=== PATIENT | male | born 1965 | race Caucasian/White ===

== ENCOUNTER 2023-11-20 14:12 | Emergency (ER) | payer OTHER ==
--- OUTSIDE RECORDS SUMMARY | 2023-11-20 14:16 | XMS REPORT | Continuity of Care Document ---
Author Name Unknown Address [address] [place] [address] [facility] thconnect Address 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 Operator Name Role Phone YECENIA NEVILLE Attending Clinician Unavailab le VALREEN_FARHANA Attending Clinician Unavailable AMEENA RIVERA Attending Clinician UnavailAUGUSTINA Shen Attending Clinician Unavailable PAWAN HAYES Attending Clinician Unavailable EMILY CLAYTON Attending Clinician Unavailab le AMBREEN_FARHANA Admitting Clinician Unavailable Payers Payer Name Policy Type Policy Number Effective Date Expirati on Date Source [facility] CHOICE/CHOICE PLUS [id number] 2023 00:00:00 Medications Ordered Medication Name Filled Medication Name Start Date Stop Date Current Medication? Ordering Clinician Indication Dosage Frequency Signature (SIG) Comments Components Source dexamethaso ne 6 mg tablet TAKE 1 TABLET BY MOUTH ONCE DAILY FOR 7 DAYS dexamethaso ne 6 mg tablet TAKE 1 TABLET BY MOUTH ONCE DAILY FOR 7 DAYS No dexamethas one 6 mg tablet TAKE 1 TABLET BY MOUTH ONCE DAILY FOR 7 DAYS [facility] lisinopril 20 mg tablet TAKE 1 TABLET BY MOUTH ONCE DAILY lisinopril 20 mg tablet TAKE 1 TABLET BY MOUTH ONCE DAILY No lisinopril 20 mg tablet TAKE 1 TABLET BY MOUTH ONCE DAILY [facility] azithromyci n 250 mg tablet TAKE 2 TABLETS BY MOUTH ON DAY 1 AND THEN TAKE 1 TABLET BY MOUTH ONCE A DAY ON DAY 2 THROUGH DAY 5 azithromyci n 250 mg tablet TAKE 2 TABLETS BY MOUTH ON DAY 1 AND THEN TAKE 1 TABLET BY MOUTH ONCE A DAY ON DAY 2 THROUGH DAY 5 No azithromyc in 250 mg tablet TAKE 2 TABLETS BY MOUTH ON DAY 1 AND THEN TAKE 1 TABLET BY MOUTH ONCE A DAY ON DAY 2 THROUGH DAY 5 [facility] Encounters Start Date/Time End Date/Time Encounter Type Admission Type Attending [facility] Facility Care Department Encounter ID Source 2023-11-24 13:45:00 2023-11-24 13:45:00 Outpatient [facility] [id number] [facility] 2023-10-26 08:53:00 2023-10-26 12:07:00 emergency [facility] [id number] 2023-10-26 08:53:00 2023-10-26 12:07:00 Emergency ER KELIN YECENIA [facility] [id number] [facility] 2020-09-16 01:34:00 2020-09-16 01:34:00 Outpatient ABDOULAYE [facility] [id number] [facility] 2020-09-16 00:00:00 2020-09-16 00:00:00 Damaris Gomez MD: Renata aPrekh, [place] [address] , [address] [facility] [id number] [facility] 2020-08-25 01:02:00 2020-08-25 01:02:00 Outpatient AMBREEN_NEGIN [facility] [id number] [facility] 2020-08-18 10:27:00 2020-08-18 10:27:00 Outpatient AMBREENNAHUM [facility] [id number] [facility] 2020-08-18 00:00:00 2020-08-18 00:00:00 Damaris Gomez MD: [address] [place] [address] , Ph. [facility] Jain [facility] [id number] [facility] 2020-08-13 02:42:00 2020-08-13 02:42:00 Outpatient AMBREENNAHUM [facility] [id number] [facility] 2012-04-12 07:29:00 2012-04-12 07:29:00 Outpatient AMEENA MUSA [facility] [id number] [facility] 2010-03-31 22:01:00 2010-04-01 01:19:00 Emergency ER AUGUSTINA GOULD [facility] [id number] [facility] 2010-02-23 15:08:00 2010-02-23 15:08:00 Outpatient PAWAN CESPEDES [facility] [id number] [facility] 2009-10-29 11:23:00 2009-10-29 14:25:00 Emergency ER EMILY CLAYTON [facility] [id number] [facility]
[2023-11-20 16:35] LABS: Absolute Basophils 0.1 K/uL (0-0.5); Absolute Eosinophils 0.2 K/uL (0-0.5); Absolute Lymphocytes (CBC) 2.1 K/uL (0.7-4.9); Absolute Monocytes 1.6 K/uL (0.1-1.3); Absolute Neutrophil 12.9 K/uL (1.8-8.0); Basophils % 0.6 % (0-1.3); Hematocrit 35.6 % (39.6-49.0); Hemoglobin 11.3 g/dL (13.6-17.9); Lymphocytes % 12.5 % (15.3-44.8); MCH 26.4 pg (27.0-35.0); MCHC 31.6 g/dL (32.0-36.0); MCV 83.4 fL (80-100); MPV 6.7 fL (7.6-11.3); Monocytes % 9.4 % (3.3-12.3); Neutrophils % 76.5 % (41.7-73.7); Platelets 761 thou/uL (152-406); RBC Red Blood Cell Count 4.26 M/uL (4.33-5.43); Red Cell Distribution Width 14.7 % (12.1-15.2)
[2023-11-20 16:38] LABS: PT Prothrombin Time 15.3 SECONDS (9.4-12.5); PTT, Activated Partial Thromb 33.7 SECONDS (24.3-36.9); Protime INR 1.4
--- NOTE | 2023-11-20 16:41 | RAD REPORT ---
EXAM DESCRIPTION: USExtremity Venous Uni Ltd11/20/2023 4:15 pm CLINICAL HISTORY: left leg pain COMPARISON: None FINDINGS: Acute thrombus left popliteal vein with diminished flow. The vein is not compressible Left common femoral, superficial femoral, greater saphenous, popliteal and posterior tibial veins ar e compressible and demonstrate augmentation. Doppler demonstrates good flow. Grayscale, color and spectral analysis performed on all vessels IMPRESSION: Acute left popliteal venous thrombosis
[2023-11-20 16:54] LABS: Albumin/Globulin Ratio 0.5 (1.1-1.8); Bilirubin Total 0.9 mg/dL (0.2-1.0); Globulin 5.7 g/dL (2.3-3.5); Protein, Total 8.7 g/dL (6.4-8.2)
--- NOTE | 2023-11-20 17:42 | RAD REPORT ---
EXAM DESCRIPTION: CT - Chest For Pe Angio - 11/20/2023 5:30 pm CLINICAL HISTORY: Chest pain COMPARISON: None. TECHNIQUE: Dynamically enhanced axial 3 mm thick images of the chest were obtained during administra tion of 150 mL Isovue 370 IV contrast. Coronal and sagittal reconstruction images were generated and reviewed. Exam utilizes a protocol for optimal evaluation of pulmonary arterial tree. Maximum intensity projections 3D imaging was utilized All CT scans are performed using dose optimization technique as appropriate and may include automated exposure control or mA/KV adjustment according to patient size. FINDINGS: There is poor opacification the pulmonary arteries. This is nondiagnostic to detect pulmon dave embolus. Aberrant right subclavian artery A thoracic aortic aneurysm is not noted. No thoracic aortic dissection A pleural effusion is not seen. A pericardial effusion is not seen. A lung consolidation is not present. Moderate hiatal hernia. The esophagus is distended with fluid IMPRESSION: No thoracic aortic dissection Nondiagnostic evaluation of the pulmonary arteries Moderate hiatal hernia. The esophagus is distended with fluid
[2023-11-20] MEDS ORDERED: NA CHLORIDE 0.9% 1,000 ML ONE ×2 (17:48→21:40)
--- NOTE | 2023-11-20 17:54 | RAD REPORT ---
EXAM DESCRIPTION: CT - Abdomen Pelvis W Contrast - 11/20/2023 5:30 pm CLINICAL HISTORY: Abdominal pain COMPARISON: none. TECHNIQUE: Computed axial tomography of the abdomen pelvis was obtained. 100 cc Isovue-300 was admin istered intravenously. Oral contrast was not requested which limits evaluation of bowel and appendix All CT scans are performed using dose optimization technique as appropriate and may include automated exposure control or mA/KV adjustment according to patient size. FINDINGS: The liver, spleen, pancreas, adrenal and kidneys appear unremarkable. 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 No obstruction. Diverticula stem from co shorty without evidence diverticulitis. Several areas of ill-defined fluid are present within abdomen and upper pelvis. No air bubbles within the fluid. Prostate gland is moderately enlarged. Small to moderate inguinal hernias contain fat Inflammatory changes surround skin and subcutaneous tissue at the surgical site midline abdomen. An a bscess is not seen. Mild anterior subluxation L5 on S1. Spondylolysis L5 IMPRESSION: Partial colon resection with right lower quadrant ileostomy. No obstruction. Inflammatory changes surround skin and subcutaneous tissue at the surgical site midline abdomen. An a bscess is not seen within the subcutaneous tissues. . This may indicate a cellulitis Ill-defined fluid within the abdomen and upper pelvis. This may be blood. A well-formed abscess is no t present. If the patient's symptoms do not improve then followup CT obtained to reassess the fluid c ollections.
--- NOTE | 2023-11-20 19:14 | ER ---
Nurse's Notes [facility] Name: Nesha García Age: 57 yrs Sex: Male : 1965 Arrival Date: 11/20/2023 Time: 14:12 Bed 19 Private MD: Diagnosis: Post operative fluid collection;Severe sepsis without septic shock;Cellulitis of abdominal wall;Acute left popliteal venous thrombosis Presentation: 11/19 15:31 Chief complaint: Patient states: Had ileostomy earlier this month, has been referred to cancer center here in town, c/o pain and redness to surgical site and pain to Fina partida. Coronavirus screen: Vaccine status: Patient reports receiving the 2nd dose of the covid vaccine. Ebola Screen: No symptoms or risks identified at this time. Initial Sepsis Screen: Does the patient meet any 2 criteria? No. Patient's initial sepsis screen is negative. Does the patient have a suspected source of infection? No. Patient's initial sepsis screen is negative. Risk Assessment: Do you want to hurt yourself or someone else? Patient reports no desire to harm self or others. Onset of symptoms was November 20, 2023. 15:31 Method Of Arrival: Ambulatory 15:31 Acuity: GIORGI 2 Historical: - Allergies: 15:35 PENICILLINS; - Immunization history:: Adult Immunizations unknown. - Infectious Disease History:: Denies. - Social history:: Smoking status: unknown. Screenin:35 [facility] ED Fall Risk Assessment (Adult) History of falling in the last 3 months, me1 including since admission No falls in past 3 months (0 pts) Confusion or Disorientation No (0 pts) Intoxicated or Sedated No (0 pts) Impaired Gait No (0 pts) Mobility Assist Device Used No (0 pt) Altered Elimination No (0 pt) Score/Fall Risk Level 0 - 2 = Low Risk Maintained a safe environment, Provided non-skid footwear, Hourly rounding (assess needs \T\ fall precautionary measures) done. Abuse screen: Denies threats or abuse. Nutritional screening: No deficits noted. Tuberculosis screening: No symptoms or risk factors identified. Assessment: 15:35 General: Appears uncomfortable, well groomed, well developed, well nourished, Behavior me1 is calm, cooperative, appropriate for age, Reports Had ileostomy earlier this month, has been referred to cancer center here in town, c/o pain and redness to surgical site and pain to L calf. Pain: Complains of pain in left calf Pain does not radiate. Pain currently is 3 out of 10 on a pain scale. Quality of pain is described as tender, Pain began gradually, 2-3 days ago. Is continuous. Neuro: Level of Consciousness is awake, alert, obeys commands, Oriented to person, place, time, situation, Appropriate for age. Cardiovascular: Capillary refill < 3 seconds Patient's skin is warm and dry. Respiratory: Airway is patent Trachea midline Respiratory effort is even, unlabored, Respiratory pattern is regular, symmetrical. GI: Ileostomy site is reddened. Ostomy appliance is intact. : No signs and/or symptoms were reported regarding the genitourinary system. EENT: No signs and/or symptoms were reported regarding the EENT system. Derm: Wound noted umbilical area and suprapubic area Wound is surgical incision. Musculoskeletal: Reports pain in left calf. Vital Signs: 15:31 BP 95 / 60; Pulse 118; Resp 20; Temp 99.4; Pulse Ox 96% on R/A; Weight 104.33 kg; ph Height 5 ft. 10 in. ; 16:30 BP 101 / 71; Pulse 102; Resp 19; Pulse Ox 94% on R/A; me1 17:00 BP 103 / 62; Pulse 105; Resp 20; Pulse Ox 97% on R/A; me1 18:00 BP 103 / 67; Pulse 103; Resp 21; Pulse Ox 97% on R/A; me1 19:00 BP 109 / 72; Pulse 103; Resp 24; Pulse Ox 97% on R/A; me1 20:00 BP 99 / 71; Pulse 104; Resp 19; Pulse Ox 95% on R/A; me1 21:00 BP 120 / 79; Pulse 97; Resp 20; Pulse Ox 97% on R/A; me1 15:31 Body Mass Index 33.00 (104.33 kg, 177.8 cm) ph ED Course: 14:15 Patient arrived in ED. mr 14:36 Julisa Moran PA-C is PHCP. sb4 14:36 Tarik Carrillo MD is Attending Physician. sb4 15:35 Triage completed. ph 15:35 Arm band placed on. ph 15:35 Patient has correct armband on for positive identification. Bed in low position. Call me1 light in reach. Side rails up X2. Provided Education on: POC. Verbalized understanding. . 15:35 No provider procedures requiring assistance completed. me1 15:41 Ashley Amaya, RN is Primary Nurse. me1 16:17 Extremity Venous Uni Ltd US In Process Unspecified. EDMS 16:25 Blood Culture Adult (2) Sent. ld1 16:25 Lactate w/ 2H reflex if indic. Sent. ld1 16:25 Inserted saline lock: 20 gauge in left antecubital area, using aseptic technique. Blood ld1 collected. 16:33 Client placed on continuous cardiac and pulse oximetry monitoring. NIBP monitoring me1 applied. engine monitor on. Pulse ox on. NIBP on. 17:32 CT Abd/Pelvis - IV Contrast Only In Process Unspecified. EDMS 17:32 CT Chest For PE Angio In Process Unspecified. EDMS 20:40 Initiated transfer with Sandra Dawn \T\ [facility]. km 21:00 pt was accepted sandra dawn, [address] Aguilar Fatoumata \\2100. Admin: [facility]\2100. number for nurse to nurse report [phone]. [facility] to transfer pt. 21:43 Patient transferred, IV remains in place. me1 Administered Medications: 17:48 Drug: NS 0.9% IV 1000 ml IV at 1 bolus Per protocol; 1000 mL bolus Route: IV; Rate: 1 me1 bolus; Site: left antecubital; 19:51 Follow up: Response: No adverse reaction; IV Status: Completed infusion; IV Intake: me1 1000ml 19:16 Drug: metroNIDAZOLE IVPB 500 mg 100 ml IVPB at 200 ml/hr once over 30 mins Volume: 100 me1 ml; Route: IVPB; Rate: 200 ml/hr; Infused Over: 30 mins; Site: left antecubital; 19:57 Follow up: Response: No adverse reaction; IV Status: Completed infusion; IV Intake: me1 100ml 19:55 Drug: Ciprofloxacin IVPB 400 mg 200 ml IVPB once over 60 mins Volume: 200 ml; Route: me1 IVPB; Infused Over: 60 mins; Site: left antecubital; 21:39 Follow up: Response: No adverse reaction; IV Status: Completed infusion; IV Intake: me1 200ml 21:41 Drug: NS 0.9% IV 1000 ml IV at 125 ml/hr continuous Route: IV; Rate: 125 ml/hr; Site: ct1 left antecubital; 22:05 Follow up: IV Status: Infusion continued upon transfer me1 Medication: 15:35 VIS not applicable for this client. me1 Intake: 19:51 IV: 1000ml; Total: 1000ml. me1 19:57 IV: 100ml; Total: 1100ml. me1 21:39 IV: 200ml; Total: 1300ml. me1 Outcome: 19:14 ER care complete, transfer ordered by . sb4 21:41 Transferred by ground EMS to [facility], Transfer form completed. Note: me1 Report called to BLANKA Vora. 21:41 Condition: stable 21:41 Instructed on the need for transfer, 22:16 Patient left the ED. me1 Signatures: Dispatcher [employer] EDRadha Mccabe, Reg Reg mr Selina Alex RN RN [facility] RN RN ld1 Julisa Moran, PA-C PA-C sb4 Ashley Amaya RN RN me1 [facility] Corrections: (The following items were deleted from the chart) 18:47 15:31 Chief complaint: Patient states: Had ileostomy earlier this month, has been me1 referred to cancer center here in town, c/o pain and redness to surgical site and pain to L helga, ph 19:59 16:30 BP 101 / 71; Pulse 102bpm; Pulse Ox 94% RA; Temp 19F; me1 me1
--- NOTE | 2023-11-20 19:14 | EDPHYS ---
Physician Documentation [facility] Name: Nesha García Age: 57 yrs Sex: Male : 1965 Arrival Date: 11/20/2023 Time: 14:12 Bed 19 Private MD: ED Physician Tarik Carrillo HPI: 11/19 17:03 This 57 yrs old Male presents to ER via Ambulatory with complaints of Post Surgical sb4 Pain, Leg Pain. 17:03 Patient presents with complains of left calf pain. He had a colectomy with ileostomy sb4 done at [facility] about 3 weeks ago and is concerned about a DVT. Additionally, states that he has been nauseated, been running a low-grade fever, and that his incision site looks red. She also reports a change in ostomy output. Historical: - Allergies: 15:35 PENICILLINS; ph - Immunization history:: Adult Immunizations unknown. - Infectious Disease History:: Denies. - Social history:: Smoking status: unknown. ROS: 17:03 Cardiovascular: Negative for chest pain, palpitations, and edema, sb4 17:03 Constitutional: Positive for fever, 17:03 Abdomen/GI: Positive for abdominal pain, 17:03 MS/extremity: Positive for left calf pain, 17:03 All other systems are negative, Exam: 17:03 Constitutional: This is a well developed, well nourished patient who is awake, alert, sb4 and in no acute distress. Head/Face: Normocephalic, atraumatic. Eyes: Extra-ocular motions intact. Periorbital areas with no swelling, redness, or edema. ENT: Mucous membranes moist. Respiratory: Lungs have equal breath sounds bilaterally, clear to auscultation and percussion. No rales, rhonchi or wheezes noted. No increased work of breathing, no retractions or nasal flaring. 17:03 Abdomen/GI: Inspection: scar(s), are noted in the midline, Bowel sounds: normal, Palpation: soft, periumbilical distension. incision site well approximated, no significant surrounding cellulitis, zahira intact, ostomy draining brown fluid, 17:03 Musculoskeletal/extremity: DVT Exam: no swelling, negative Homans' sign noted on exam, no appreciated bluish discoloration, no erythema, no increased warmth, pain, tenderness, of the left leg, Vital Signs: 15:31 BP 95 / 60; Pulse 118; Resp 20; Temp 99.4; Pulse Ox 96% on R/A; Weight 104.33 kg; ph Height 5 ft. 10 in. ; 16:30 BP 101 / 71; Pulse 102; Resp 19; Pulse Ox 94% on R/A; me1 17:00 BP 103 / 62; Pulse 105; Resp 20; Pulse Ox 97% on R/A; me1 18:00 BP 103 / 67; Pulse 103; Resp 21; Pulse Ox 97% on R/A; me1 19:00 BP 109 / 72; Pulse 103; Resp 24; Pulse Ox 97% on R/A; me1 20:00 BP 99 / 71; Pulse 104; Resp 19; Pulse Ox 95% on R/A; me1 21:00 BP 120 / 79; Pulse 97; Resp 20; Pulse Ox 97% on R/A; me1 15:31 Body Mass Index 33.00 (104.33 kg, 177.8 cm) ph MDM: 14:44 Patient medically screened. [facility] 19:12 Data reviewed: vital signs, nurses notes, lab test result(s), radiologic studies, I [facility] have discussed the patient's presentation/case with the attending Emergency Department Physician;. Historians other than the Patient: Spouse/Significant Other: . Counseling: I had a detailed discussion with the patient and/or guardian regarding the historical points, exam findings, and any diagnostic results supporting the discharge/admit diagnosis, lab results, radiology results, the need to transfer to another facility, for higher level of care, [facility] does not immediately have the required specialist. 21:02 ED course: will defer anticoagulation at this time to surgical team at [address] given possible surgical intervention. ED course: [facility] surgery team accepted without conference. 11/19 15:38 Order name: Blood Culture Adult (2) [facility] 11/19 15:38 Order name: CBC with Diff; Complete Time: 16:39 [facility] 11/19 15:38 Order name: CMP; Complete Time: 16:54 [facility] 11/19 15:38 Order name: Lactate w/ 2H reflex if indic.; Complete Time: 16:58 [facility] 11/19 15:38 Order name: Protime (+inr); Complete Time: 16:38 sb4 11/19 15:38 Order name: Ptt, Activated; Complete Time: 16:38 sb4 11/19 18:58 Order name: Ghost Lactate-NO COLLECT Timer; Complete Time: 18:59 EDMS 11/19 19:49 Order name: Lactate Sepsis 2 HR Follow-up; Complete Time: 19:51 EDMS 11/19 15:38 Order name: CT Abd/Pelvis - IV Contrast Only; Complete Time: 17:56 sb4 11/19 15:38 Order name: Extremity Venous Uni Ltd US; Complete Time: 16:42 sb4 11/19 17:15 Order name: CT Chest For PE Angio; Complete Time: 17:42 sb4 11/19 15:38 Order name: Cardiac monitoring; Complete Time: 16:33 sb4 11/19 15:38 Order name: IV Saline Lock - Large Bore; Complete Time: 16:25 sb4 11/19 15:38 Order name: Labs collected and sent; Complete Time: 16:25 sb4 11/19 15:38 Order name: O2 Per Protocol; Complete Time: 15:47 sb4 11/19 15:38 Order name: O2 Sat Monitoring; Complete Time: 15:47 sb4 11/19 15:38 Order name: Vital Signs; Complete Time: 15:47 sb4 11/19 20:56 Order name: NPO; Complete Time: 21:41 sb4 Administered Medications: 17:48 Drug: NS 0.9% IV 1000 ml IV at 1 bolus Per protocol; 1000 mL bolus Route: IV; Rate: 1 me1 bolus; Site: left antecubital; 19:51 Follow up: Response: No adverse reaction; IV Status: Completed infusion; IV Intake: me1 1000ml 19:16 Drug: metroNIDAZOLE IVPB 500 mg 100 ml IVPB at 200 ml/hr once over 30 mins Volume: 100 me1 ml; Route: IVPB; Rate: 200 ml/hr; Infused Over: 30 mins; Site: left antecubital; 19:57 Follow up: Response: No adverse reaction; IV Status: Completed infusion; IV Intake: me1 100ml 19:55 Drug: Ciprofloxacin IVPB 400 mg 200 ml IVPB once over 60 mins Volume: 200 ml; Route: me1 IVPB; Infused Over: 60 mins; Site: left antecubital; 21:39 Follow up: Response: No adverse reaction; IV Status: Completed infusion; IV Intake: me1 200ml 21:41 Drug: NS 0.9% IV 1000 ml IV at 125 ml/hr continuous Route: IV; Rate: 125 ml/hr; Site: me1 left antecubital; 22:05 Follow up: IV Status: Infusion continued upon transfer me1 Disposition Summary: 11/20/23 19:14 Transfer Ordered Notes: Transfer Location: [facility] sb4 Reason: Higher level of care sb4 Condition: Fair sb4 Problem: new sb4 Symptoms: are unchanged sb4 Accepting Physician: Dr. Cartagena(11/20/23 22:16) me1 Diagnosis - Post operative fluid collection sb4 - Severe sepsis without septic shock sb4 - Cellulitis of abdominal wall sb4 - Acute popliteal DVT, left sb4 - Acute popliteal thrombus, left sb4 - Acute left popliteal venous thrombosis sb4 Forms: - Medication Reconciliation Form sb4 - SBAR form sb4 Signatures: Dispatcher [employer] EDTarik Cornelius MD MD rn Hall, Patricia, RN RN Julisa Herzog PA-C PA-C sb4 Ashley Aamya RN RN me1 Corrections: (The following items were deleted from the chart) 19:15 19:14 Dr. Osiel [email or web address] sb4 19:15 19:15 Dr. Cartagena sb4 sb4 19:16 19:15 Dr. Osiel [email or web address] sb4 19:16 19:16 Dr. Cartagena sb4 sb4 20:44 17:03 Patient presents with complains of left calf pain. He had a colectomy with sb4 ileostomy done in the [facility] about 3 weeks ago and is concerned about a DVT. Additionally, states that he has been nauseated, been running a low-grade fever, and that his incision site looks red. She also reports a change in ostomy output. sb4 22:16 19:16 Dr. Osiel person me1
[2023-11-20] MEDS ORDERED: METRONIDAZOLE 500mg IVPB 500 MG/100 ML BAG IV ONE (19:15)
[2023-11-20] MEDS ORDERED: CIPROFLOXACIN 400mg IV 400 MG/200 ML BAG IV ONE (19:15)
[2023-11-21 05:08] VITALS: BP 120/79; TEMP 99.4; O2SAT 97
== END 2023-11-20 22:16 | disposition short-term general hospital (02) ==
LOC: ER 14:12
DX: L76.34 Postprocedural seroma of skin and subcutaneous tissue following other procedure (principal); R65.20 Severe sepsis without septic shock; L03.311 Cellulitis of abdominal wall; I82.432 Acute embolism and thrombosis of left popliteal vein; Z98.890 Other specified postprocedural states
CPT/HCPCS: 87040 ×2; 85025; 36415; 85610; 83605 ×2; 85730; 80053; 71275; 74177; 93971; Q9967; J0744; J7030 ×2

== ENCOUNTER 2024-01-28 18:49 | Emergency (ER) | payer OTHER ==
[2024-01-28 19:42] LABS: Absolute Eosinophils 0.1 K/uL (0-0.5); Absolute Lymphocytes (CBC) 4.2 K/uL (0.7-4.9); Absolute Monocytes 0.2 K/uL (0.1-1.3); Absolute Neutrophil 3.2 K/uL (1.8-8.0); Basophils % 0.2 % (0-1.3); Eosinophils % 0.9 % (0-4.4); Hematocrit 39.3 % (39.6-49.0); Hemoglobin 12.9 g/dL (13.6-17.9); Lymphocytes % 54.8 % (15.3-44.8); MCH 26.5 pg (27.0-35.0); MCHC 32.8 g/dL (32.0-36.0); MCV 80.8 fL (80-100); MPV 6.3 fL (7.6-11.3); Monocytes % 2.7 % (3.3-12.3); Neutrophils % 41.4 % (41.7-73.7); Nucleated Red Blood Cells % 0.2 % (0-0); Platelets 428 thou/uL (152-406); RBC Red Blood Cell Count 4.86 M/uL (4.33-5.43); Red Cell Distribution Width 17.6 % (12.1-15.2)
--- NOTE | 2024-01-28 19:44 | RAD REPORT ---
EXAM DESCRIPTION: US - UPPER EXTREMITY VENOUS UNILATE - 01/28/2024 7:38 pm CLINICAL HISTORY: RUE DVT eval Arm pain and swelling COMPARISON: <Comparisons> FINDINGS: Right upper extremity venous system was interrogated with Doppler technique. Thrombus is p resent in the right internal jugular vein, subclavian vein and axillary vein. The remainder the veins visualized are normal. IMPRESSION: Significant right upper extremity DVT seen as detailed.
[2024-01-28 19:58] LABS: Anion Gap 8.5 mEq/L (5.0-15.0); Potassium 3.5 mEq/L (3.5-5.1); Troponin High Sensitivity 8.1 pg/mL (<58.9)
[2024-01-28 20:00] LABS: PT Prothrombin Time 10.8 SECONDS (9.4-12.5); Protime INR 0.96
--- NOTE | 2024-01-28 20:11 | RAD REPORT ---
EXAM DESCRIPTION: US - Upper Ext Artery Uni Ned - 01/28/2024 8:03 pm CLINICAL HISTORY: RUE arterial pathology COMPARISON: <Comparisons> FINDINGS: Real-time sonographic interrogation of the right upper extremity arterial system is perfor med. No significant flow abnormality is detected. Velocities are within normal range. IMPRESSION: Negative study.
[2024-01-28 20:19] LABS: Differential Total Cells Count 100; Lymphocytes 63 % (15-42); Monocytes 1 % (0-10); Segmented Neutrophils 36 % (40-80)
[2024-01-28 20:20] LABS: Blood Morphology Comment NOT SEEN (NOT SEEN); Platelet Estimate ADEQ; Platelets Clumped FEW
[2024-01-28] MEDS ORDERED: HEPARIN/D5W 25,000 UNIT/500 ML BAG IV ONE (20:32)
--- NOTE | 2024-01-28 20:32 | ER ---
Nurse's Notes [facility] Name: Nesha García Age: 58 yrs Sex: Male : 1965 Arrival Date: 01/28/2024 Time: 18:49 Bed 2 Private MD: Diagnosis: Acute embolism and thrombosis of deep veins of right upper extremity Presentation: 01/27 19:03 Chief complaint: Patient states: he has had a port since October 2023. patient reports he ap3 had a chemo treatment from Monday 01/22-01/24 and started seeing some swelling to his right arm yesterday 01/26 and to the right side of his neck this morning on 01/28/24. patient currently rates his pain as a 7/10 on the pain scale. patient called his chemo dr with these symptoms and was instructed to come to the ED for further evaluation. Coronavirus screen: At this time, the client does not indicate any symptoms associated with coronavirus-19. Ebola Screen: No symptoms or risks identified at this time. Initial Sepsis Screen: Does the patient meet any 2 criteria? HR > 90 bpm. Does the patient have a suspected source of infection? No. Patient's initial sepsis screen is negative. Risk Assessment: Do you want to hurt yourself or someone else? Patient reports no desire to harm self or others. Onset of symptoms was January 27, 2024. 19:03 Method Of Arrival: Ambulatory ap3 19:03 Acuity: GIORGI 3 ap3 Triage Assessment: 19:06 General: Appears in no apparent distress. Behavior is calm, cooperative, appropriate ap3 for age. Pain: Complains of pain in right arm and neck Pain currently is 7 out of 10 on a pain scale. Neuro: Level of Consciousness is awake, alert, obeys commands, Oriented to person, place, time, situation, Appropriate for age. Cardiovascular: Patient's skin is warm and dry. Respiratory: Airway is patent Respiratory effort is even, unlabored, Respiratory pattern is regular, symmetrical. Historical: - Allergies: 19:06 PENICILLINS; ap3 - Immunization history:: Client reports receiving the 2nd dose of the Covid vaccine. - Infectious Disease History:: Denies. - Social history:: Smoking status: Patient reports use of chewing tobacco. Screenin:07 [facility] ED Fall Risk Assessment (Adult) History of falling in the last 3 months, ap3 including since admission No falls in past 3 months (0 pts) Confusion or Disorientation No (0 pts) Intoxicated or Sedated No (0 pts) Impaired Gait No (0 pts) Mobility Assist Device Used No (0 pt) Altered Elimination No (0 pt) Score/Fall Risk Level 0 - 2 = Low Risk Oriented to surroundings, Maintained a safe environment, Educated pt \T\ family on fall prevention, incl call for assistance when getting out of bed, Assessed \T\ reinforced patient's understanding of fall precautions, Hourly rounding (assess needs \T\ fall precautionary measures) done, Used ambulatory aids as needed (educated on \T\ assisted with), Used gait belt as appropriate. Abuse screen: Denies threats or abuse. Nutritional screening: No deficits noted. Tuberculosis screening: No symptoms or risk factors identified. Assessment: 19:32 General: Appears in no apparent distress. uncomfortable, Behavior is calm, cooperative, bm8 appropriate for age. Pain: Complains of pain in right arm and neck Pain currently is 8 out of 10 on a pain scale. Neuro: No deficits noted. Level of Consciousness is awake, alert, obeys commands, Oriented to person, place, time, situation, Appropriate for age. Cardiovascular: Reports swelling and mottled skin to right arm Heart tones S1 S2 present Capillary refill < 3 seconds Patient's skin is warm and dry. Rhythm is sinus rhythm. Respiratory: Airway is patent Respiratory effort is even, unlabored, Respiratory pattern is regular, symmetrical, Breath sounds are clear bilaterally. GI: No signs and/or symptoms were reported involving the gastrointestinal system. colostomy bag rRLQ. : No signs and/or symptoms were reported regarding the genitourinary system. EENT: No signs and/or symptoms were reported regarding the EENT system. Derm: No signs and/or symptoms reported regarding the dermatologic system. Musculoskeletal: Swelling present in right arm Reports pain in right arm. 21:15 Reassessment: Patient appears in no apparent distress at this time. Patient and/or bm8 family updated on plan of care and expected duration. Pain level reassessed. Patient is alert, oriented x 3, equal unlabored respirations, skin warm/dry/pink. pt reports increased pain in right arm. MD notified and new orders received. 21:54 Reassessment: md notified that the fentanyl had no effect on pt's pain level. new bm8 orders recieved. Pain: Complains of pain in right arm Pain currently is 9 out of 10 on a pain scale. 22:03 Reassessment: report to BLANKA Phelps at [facility]. bm8 Vital Signs: 19:03 BP 125 / 102; Pulse 92; Resp 17; Temp 97.5; Pulse Ox 98% on R/A; Weight 102.06 kg; ap3 Height 5 ft. 10 in. ; Pain 7/10; 21:15 BP 117 / 89; Pulse 73; Resp 15; Temp 97.5; Pulse Ox 99% ; Pain 9/10; bm8 21:54 BP 119 / 87; Pulse 67; Resp 12; Temp 97.5; Pulse Ox 99% ; Pain 9/10; bm8 19:03 Body Mass Index 32.28 (102.06 kg, 177.8 cm) ap3 19:03 Pain Scale: Adult ap3 21:15 Pain Scale: Adult bm8 21:54 Pain Scale: Adult bm8 [place] Coma Score: 19:32 Eye Response: spontaneous(4). Motor Response: obeys commands(6). Verbal Response: bm8 oriented(5). Total: 15. 21:15 Eye Response: spontaneous(4). Motor Response: obeys commands(6). Verbal Response: bm8 oriented(5). Total: 15. ED Course: 18:52 Patient arrived in ED. im 19:06 Triage completed. ap3 19:07 Arm band placed on left wrist. ap3 19:08 Omero Jacome MD is Attending Physician. ec2 19:32 Chris Farias, BLANKA is Primary Nurse. bm8 19:32 Patient has correct armband on for positive identification. Placed in gown. Bed in low bm8 position. Call light in reach. Side rails up X 1. Adult w/ patient. Client placed on continuous cardiac and pulse oximetry monitoring. NIBP monitoring applied. paralegal instructor on. Pulse ox on. NIBP on. Door closed. Noise minimized. Pillow given. Verbal reassurance given. Head of bed elevated. 19:32 No provider procedures requiring assistance completed. Initial lab(s) drawn, by bing marin sent to lab. EKG done, by ED staff, reviewed by Omero Jacome MD. Inserted saline lock: 20 gauge in left antecubital area, using aseptic technique. Blood collected. Flushed with 10 mL NS. Patient maintains SpO2 saturation greater than 95% on room air. 19:39 UPPER EXTREMITY VENOUS UNILATE In Process Unspecified. EDMS 20:05 Upper Ext Artery Uni Ned In Process Unspecified. EDMS 20:30 XRAY Chest (1 view) In Process Unspecified. EDMS 21:15 Provided Education on: need for admit. bm8 21:[address] [facility] for transfer talked to Rodger 2108 Vascular Surgeon accepted sp pt 2123 Dr. Carrillo Tsang accepted pt. 2133 Rodger Forman admin approval to [facility] bed # [id number] report # [phone] fax number [phone]. 22:05 called [facility] talked to Rubio. sp 22:41 Patient transferred, IV remains in place. bm8 Administered Medications: 20:32 Drug: Heparin (DVT/PE Drip) 18 units/kg/[place] - ([place] [address] units, D5W IV 500 ml) IV bm8 at calculated rate Per protocol; Max initial rate 1800 units/hr {Co-Signature: al5 (Yumiko Patel RN).} Route: IV; Rate: calculated rate; Site: left antecubital; 22:42 Follow up: Response: No adverse reaction; IV Status: Infusion continued upon transfer bm8 21:14 Drug: fentaNYL (PF) IVP 25 mcg IVP once Route: IVP; Site: left antecubital; bm8 22:42 Follow up: Response: No adverse reaction bm8 21:53 Drug: morphine IVP or IV 4 mg IVP once over 4 mins Route: IVP; Infused Over: 4 mins; bm8 Site: left antecubital; 22:41 Follow up: Response: No adverse reaction bm8 Medication: 19:32 VIS not applicable for this client. bm8 Outcome: 20:31 ER care complete, transfer ordered by ec2 22:41 Transferred by ground EMS [place] [facility]. bm8 X-rays sent w/ patient. 22:41 Condition: stable 22:41 Instructed on the need for transfer, Demonstrated understanding of instructions, follow-up care, 22:42 Patient left the ED. bm8 Signatures: Dispatcher [employer] Jaymie Ross Amanda, RN RN ap3 Kylah Delvalle Edwin, MD MD ec2 Chris Farias RN RN bm8 Yumiko Patel RN al5
--- NOTE | 2024-01-28 20:32 | EDPHYS ---
Physician Documentation [facility] Name: Nesha García Age: 58 yrs Sex: Male : 1965 Arrival Date: 01/28/2024 Time: 18:49 Bed 2 Private MD: ED Physician Omero Jacome HPI: 01/27 19:20 This 58 yrs old Male presents to ER via Ambulatory with complaints of Neck ec2 Swelling, Arm Swelling. 19:20 Patient arrives today for evaluation of right upper extremity swelling. Patient reports ec2 that yesterday he noticed forearm swelling. Patient reports some discomfort as well in the forearm. Denies any fevers or chills, is on chemotherapy for colon cancer, had a recent colon resection. Patient is already on Eliquis.. Historical: - Allergies: 19:06 PENICILLINS; ap3 - Immunization history:: Client reports receiving the 2nd dose of the Covid vaccine. - Infectious Disease History:: Denies. - Social history:: Smoking status: Patient reports use of chewing tobacco. ROS: 19:20 Constitutional: as per hpi ec2 Exam: 19:20 Constitutional: GEN: NAD Head: atraumatic Eyes: EOMI Ears: External ears are ec2 normal. CV: regular rate LUNGS: no respiratory distress ABD: non-distended SKIN: Swelling noted to the right upper extremity, intact capillary refill of the right upper extremity MSK: no evidence of trauma Vital Signs: 19:03 BP 125 / 102; Pulse 92; Resp 17; Temp 97.5; Pulse Ox 98% on R/A; Weight 102.06 kg; ap3 Height 5 ft. 10 in. ; Pain 7/10; 21:15 BP 117 / 89; Pulse 73; Resp 15; Temp 97.5; Pulse Ox 99% ; Pain 9/10; bm8 21:54 BP 119 / 87; Pulse 67; Resp 12; Temp 97.5; Pulse Ox 99% ; Pain 9/10; bm8 19:03 Body Mass Index 32.28 (102.06 kg, 177.8 cm) ap3 19:03 Pain Scale: Adult ap3 21:15 Pain Scale: Adult bm8 21:54 Pain Scale: Adult bm8 [place] Coma Score: 19:32 Eye Response: spontaneous(4). Motor Response: obeys commands(6). Verbal Response: bm8 oriented(5). Total: 15. 21:15 Eye Response: spontaneous(4). Motor Response: obeys commands(6). Verbal Response: bm8 oriented(5). Total: 15. MDM: 19:15 Patient medically screened. ec2 19:20 Data reviewed: vital signs. ED course: Patient arrives today for evaluation of right ec2 upper extremity swelling. Examination remarkable for well-appearing nontoxic vigorous otherwise in no acute distress with swelling noted to right upper extremity. Will obtain ultrasound to evaluate for DVT, will evaluate for arterial pathology as well as possible mass.. 19:21 ED course: EKG independently reviewed and interpreted by me, shows normal sinus rhythm, ec2 rate of 77, no acute ST segment elevations, intervals are nonconcerning.. 20:22 ED course: Metabolic profile is reassuring, CBC is reassuring. Troponin within normal ec2 ranges, fibrinogen within normal ranges, ultrasound shows significant right upper extremity DVT. Arterial ultrasound is negative. Will start the patient on heparin drip. . 20:30 ED course: Ultrasound shows fairly extensive DVT from the internal jugular to the ec2 subclavian and axillary vein, given the degree of clot burden, will transfer to vascular surgery capable facility. . 21:24 ED course: Discussed case with vascular surgeon as well as at the hospitalist who ec2 agreed accept patient for transfer.. 01/27 19:14 Order name: Basic Metabolic Panel; Complete Time: 20:20 ec2 01/27 19:14 Order name: CBC with Diff; Complete Time: 20:23 ec2 01/27 19:14 Order name: NT PRO-BNP; Complete Time: 20:20 ec2 01/27 19:14 Order name: PT-INR; Complete Time: 20:20 ec2 01/27 19:14 Order name: Troponin HS; Complete Time: 20:20 ec2 01/27 19:14 Order name: Fibrinogen; Complete Time: 20:20 ec2 01/27 20:18 Order name: Manual Differential; Complete Time: 20:23 EDMS 01/27 19:14 Order name: XRAY Chest (1 view); Complete Time: 20:37 ec2 01/27 19:22 Order name: UPPER EXTREMITY VENOUS UNILATE; Complete Time: 20:20 EDMS 01/27 19:38 Order name: Upper Ext Artery Uni Ned; Complete Time: 20:20 EDMS 01/27 19:14 Order name: Cardiac monitoring; Complete Time: 19:36 ec2 01/27 19:14 Order name: EKG - Nurse/Tech; Complete Time: 19:36 ec2 01/27 19:14 Order name: IV Saline Lock; Complete Time: 19:36 ec2 01/27 19:14 Order name: Labs collected and sent; Complete Time: 19:36 ec2 01/27 19:14 Order name: O2 Per Protocol; Complete Time: 19:36 ec2 01/27 19:14 Order name: O2 Sat Monitoring; Complete Time: 19:36 ec2 Administered Medications: 20:32 Drug: Heparin (DVT/PE Drip) 18 units/kg/[place] - ([place] [address] units, D5W IV 500 ml) IV bm8 at calculated rate Per protocol; Max initial rate 1800 units/hr {Co-Signature: al5 (Yumiko Patel RN).} Route: IV; Rate: calculated rate; Site: left antecubital; 22:42 Follow up: Response: No adverse reaction; IV Status: Infusion continued upon transfer bm8 21:14 Drug: fentaNYL (PF) IVP 25 mcg IVP once Route: IVP; Site: left antecubital; bm8 22:42 Follow up: Response: No adverse reaction bm8 21:53 Drug: morphine IVP or IV 4 mg IVP once over 4 mins Route: IVP; Infused Over: 4 mins; bm8 Site: left antecubital; 22:41 Follow up: Response: No adverse reaction bm8 Disposition Summary: 01/28/24 20:31 Transfer Ordered Notes: Transfer Location: Other Acute Care Facility ec2 Reason: Higher level of care ec2 Condition: Stable ec2 Problem: new ec2 Symptoms: are unchanged ec2 Accepting Physician: transferring doc(01/28/24 22:42) bm8 Diagnosis - Acute embolism and thrombosis of deep veins of right upper extremity ec2 Forms: - Medication Reconciliation Form ec2 - SBAR form ec2 Signatures: Dispatcher [employer] Yumiko Berman RN RN ap3 Omero Jacome MD MD ec2 Chris Farias RN RN bm8 Yumiko Patel RN al5 Corrections: (The following items were deleted from the chart) 19:15 19:15 Chest Single View+RAD.RAD.BRZ ordered. EDMS EDMS 19:15 19:15 Extremity Venous Uni Ltd+US.RAD.BRZ ordered. EDMS EDMS 19:38 19:26 Lower Extremity Artery Uni Ltd+US.RAD.BRZ ordered. EDMS EDMS 20:18 19:46 CBC Smear Scan ordered. EDMS EDMS 20:33 19:18 Chest Angio ordered. EDMS EDMS 20:37 19:20 Patient arrives today for evaluation of right upper extremity swelling. Patient ec2 reports that yesterday he noticed forearm swelling. Patient reports some discomfort as well in the forearm. Denies any fevers or chills, is on chemotherapy for colon cancer, had a recent colon resection.. ec2 22:42 20:31 transferring doc ec2 bm8
--- NOTE | 2024-01-28 20:34 | RAD REPORT ---
EXAM DESCRIPTION: RAD - Chest Single View - 01/28/2024 8:28 pm CLINICAL HISTORY: COUGH Chest pain. COMPARISON: <Comparisons> FINDINGS: Portable technique limits examination quality. The lungs are grossly clear. The heart is normal in size. No displaced fractures.Moderate hiatal asael ia. Right port catheter tip in the SVC. IMPRESSION: No acute intrathoracic process suspected.
[2024-01-28] MEDS ORDERED: FENTANYL CITR 100 MCG/2 ML ONE (21:11)
[2024-01-28] MEDS ORDERED: MORPHINE 4 MG/ML SYR ONE (21:49)
[2024-01-28 22:47] VITALS: TEMP 97.5
[2024-01-28 22:48] VITALS: O2SAT 99
[2024-01-28 22:50] VITALS: BP 119/87
--- NOTE | 2024-01-30 12:40 | EKG ---
Test Date: 2024-01-28 Test Time: 19:11:54 Imaging Account Manager: REE MEASUREMENT RESULTS: Intervals: Rate: 77 AK: 136 QRSD: 88 QT: 380 QTc: 430 Bixby: P: 18 AK: 136 QRS: 20 T: 43 INTERPRETIVE STATEMENTS: Normal sinus rhythm Normal ECG No previous ECG available for comparison Electronically Signed On 01-30-24 12:37:29 CDT by Jourdan Velázquez
== END 2024-01-28 22:42 ==
LOC: ER 18:49
DX: I82.621 Acute embolism and thrombosis of deep veins of right upper extremity (principal); C18.9 Malignant neoplasm of colon, unspecified; F17.220 Nicotine dependence, chewing tobacco, uncomplicated
CPT/HCPCS: 96365; 93005; 85025; 80048; 36415; 85384; 85610; 84484; 83880; 71045; 93971; 93931; 96375; 99285; 96366; J3010

== ENCOUNTER 2024-03-14 06:28 | Day surgery (SDC) | payer OTHER ==
[2024-03-14] MEDS ORDERED: LIDOCAINE HCL/EPINEPHRINE 20 ML MDV ONE (06:55)
[2024-03-14] MEDS: Ringers Lactate 1,000 ML IV ONE (07:00)
[2024-03-14] MEDS ORDERED: MIDAZOLAM HCL 2 MG/2 ML INJ ONE (07:10)
[2024-03-14] MEDS ORDERED: LIDOCAINE 2% MPF 5 ML VIAL ONE (07:10)
[2024-03-14] MEDS ORDERED: propofoL 200 MG/20 ML VIAL IV ONE (07:10)
[2024-03-14] MEDS ORDERED: ONDANSETRON 4 MG/2 ML VIAL ONE (07:10)
[2024-03-14] MEDS ORDERED: FENTANYL CITR 100 MCG/2 ML ONE (07:10)
[2024-03-14] MEDS: CEFAZOLIN SODIUM 2 GM/VIAL ONE (07:30)
[2024-03-14] MEDS: BUPIVACAINE 0.5% PF 10 ML VIAL ONE (08:01)
[2024-03-14 08:31] VITALS: O2SAT 100
--- NOTE | 2024-03-14 08:37 | P.OP ---
Date of Service: 03/14/24 Preop diagnosis: Colon cancer, status post Port-A-Cath placement Postop diagnosis: Same Procedure performed: Removal of Port-A-Cath Surgeon: Kannan Jackson MD Expansion Joint Finisher: None Estimated blood loss: Minimal Specimen: Port-A-Cath device for identification Findings: Normal anatomy Anesthesia: General Complications: None Drains: None Fluids and blood products: Nonapplicable Disposition: Recovery room Operative note: Patient brought to the OR and placed in supine position. General anesthesia began. Patient prepped and draped in the usual sterile fashion. Marcaine 0.5% infiltrated locally. 15 blade used to make a 3 cm incision over the Port-A-Cath device. Subcutaneous tissue divided. Port-A-Cath device identified and freed from surrounding tissues sharp and blunt dissection. Port-A-Cath device removed and sent to pathology for identification. Wound irrigated and bleeding controlled cautery. 3-0 chromic used to approximate subcutaneous tissue and close skin. Dressing applied. Patient awakened and taken to recovery room in good general condition. CC: Dr. Weller's office
[2024-03-14] MEDS ORDERED: HYDROCODONE/APAP 7.5/325 MG TAB PO PRN (08:39)
[2024-03-14 08:46] VITALS: TEMP 97.2
[2024-03-14 09:44] VITALS: BP 105/69
[2024-03-14] MEDS ORDERED: NS 0.9% VIAL 40 ML ONE (09:49)
== END 2024-03-14 09:27 | disposition home or self-care (01) ==
LOC: OR 06:28
PROVIDERS: ATTEND Surgery
PROC: 0JPT0WZ Removal of Totally Implantable Vascular Access Device from Trunk Subcutaneous Tissue and Fascia, Open Approach (ICD-10-PCS; principal; 2024-03-14 07:30)
DX: C18.9 Malignant neoplasm of colon, unspecified (principal); Z45.2 Encounter for adjustment and management of vascular access device
CPT/HCPCS: 88300; A4216; J2001; J2250; J2405; J2704; J3010; J7120